=== PATIENT | male | born 1980 | race African-American/Black ===

== ENCOUNTER 2016-12-10 00:41 | Emergency (ER) | payer SELFPAY ==
[2016-12-10] MEDS ORDERED: Ketorolac Tromethamine 60 MG/2 ML VIAL ONE (01:18)
[2016-12-10] MEDS ORDERED: Clindamycin 150 MG CAP ONE (01:18)
== END 2016-12-10 01:50 | disposition home or self-care (01) ==
LOC: MADERS 00:41
DX: K02.9 Dental caries, unspecified (principal); K03.81 Cracked tooth; F17.210 Nicotine dependence, cigarettes, uncomplicated
CPT/HCPCS: 96372; J1885